=== PATIENT | female | born 1965 | race Two or more races ===

== ENCOUNTER 2018-12-01 20:50 | Inpatient (IN) | payer SELFPAY ==
[~2018-12-01] VITALS: Ht 160 cm; Wt 57.0 kg
[2018-12-01 21:23] LABS: Basophils # (auto) 0.1 uL; Basophils % (auto) 0.4 % (0.0-2.0); Eosinophils # (auto) 0 uL; Monocytes # (auto) 1.2 uL; Monocytes % (auto) 6.4 % (0.0-12.0)
[2018-12-01 21:26] LABS: Eosinophils % (auto) 0.1 % (0.0-7.0); Hematocrit 29.9 % (36.0-46.0); Hemoglobin 8.9 g/dL (12.2-16.2); Lymphocytes # (auto) 0.9 uL; Lymphocytes % (auto) 4.7 % (10.0-50.0); Mean Corpuscular Hemoglobin 18.2 pg (28.0-32.0); Mean Corpuscular Hgb Conc. 29.6 g/dL (32.0-36.0); Mean Corpuscular Volume 61.5 fL (80.0-100.0); Neutrophils # (auto) 16.2 uL; Neutrophils % (auto) 88.4 % (37.0-80.0); Platelet Count (auto) 394 10^3/uL (140-450); Red Blood Cells 4.86 10^6/uL (4.0-5.20); White Blood Cell 18.3 10^3/uL (4.4-10.8)
[2018-12-01 21:28] LABS: Red Cell Distribution Width 21.1 % (11.8-14.3)
[2018-12-01 21:41] LABS: Albumin 3.2 g/dL (3.4-5.0); Calcium 8.9 mg/dL (8.5-10.1); Potassium 3.7 mmol/L (3.5-5.1)
[2018-12-01 21:46] LABS: BUN/Creatinine Ratio 8.8; Bilirubin, Total 0.7 mg/dL (0.2-1.0); Total Protein 8.1 g/dL (6.4-8.2)
[2018-12-01 22:33] LABS: Urine Bacteria FEW /hpf (None Seen); Urine Blood Negative /uL (Negative); Urine Specific Gravity 1.022 (1.001-1.035); Urine WBC 3 /hpf (0 - 5)
[2018-12-02] MEDS ORDERED: ALBUTEROL SULF 2.5 MG/0.5ML(0.5%) NEB SOLN NEB ONE (00:30)
[2018-12-02] MEDS ORDERED: IPRATROPIUM BROM 0.5 MG/2.5ML INH SOL NEB ONE (00:30)
[2018-12-02 01:22] LABS: INR 1.02 (0.9-1.15); Partial Thromboplastin Time 30.2 sec (23.64-32.05)
[2018-12-02] MEDS ORDERED: ONDANSETRON HCL 4 MG/2 ML VIAL IV ONE (04:15)
[2018-12-02] MEDS ORDERED: KETOROLAC TROMETH 30 MG/ML 1ML VIAL IV ONE (04:15)
[2018-12-02] MEDS ORDERED: ACETAMINOPHEN 325 MG TAB PO ONE (05:00)
[2018-12-02] MEDS ORDERED: SODIUM CHLORIDE 0.9% 1,000 ML IV ONE ×2 (05:00)
[2018-12-02] MEDS ORDERED: cefTRIAXone 1GM/50ML D5W 50 ML IV ONE (05:00)
[2018-12-02] MEDS ORDERED: MORPHINE SULFATE 4 MG/ML SYR/VIAL IV ONE (05:00)
[2018-12-02] MEDS ORDERED: DEXTROSE (50%) 50ML SYRG IV PRN (06:30)
[2018-12-02] MEDS: SODIUM CHLORIDE 0.9% 1,000 ML IV SCH ×2 (06:30→19:46)
[2018-12-02] MEDS ORDERED: ONDANSETRON HCL 4 MG/2 ML VIAL IV PRN (06:30)
[2018-12-02] MEDS ORDERED: ALBUTEROL SULF 2.5 MG/0.5ML(0.5%) NEB SOLN NEB PRN (06:30)
[2018-12-02] MEDS ORDERED: TEMAZEPAM 15 MG CAP PO PRN (06:30)
[2018-12-02] MEDS ORDERED: ACETAMINOPHEN 325 MG TAB PO PRN (06:30)
[2018-12-02 08:44] VITALS: BP 92/42
[2018-12-02] MEDS: HYDROcodone-ACET 5/325MG TAB PO PRN ×2 (08:53→19:46)
--- NOTE | 2018-12-02 09:45 | NUR ---
MS admit from ER JERMAIN GARCIA admitted to tele/MS after SBAR received. Patient oriented to ALESSANDRO MARQUEZ, RN primary RN, unit, room, bed, and unit policies regarding patient care and visiting hours. Patient weighed by bed scale and encouraged to call if they need something. All questions and concerns addressed, patient verbalized understanding.
[2018-12-02 09:47] VITALS: BP 84/41
[2018-12-02] MEDS: LEVOFLOXACIN 500MG 100 ML IV SCH (11:57)
[2018-12-02] MEDS: InsuLIN REG 1unit/0.01ml Soln (100units/ml) SC SCH ×2 (11:57→17:51)
[2018-12-02] MEDS: FAMOTIDINE 20 MG TAB PO SCH ×2 (11:57→21:57)
[2018-12-02] MEDS: ACCU-CHEK COMFORT CURVE STRIP VI SCH ×2 (11:57→17:51)
--- NOTE | 2018-12-02 12:00 | NUR ---
Dr. Martinez, Hospitalist, at bedside.
--- NOTE | 2018-12-02 12:00 | NUR ---
New orders received from Dr. Martinez, Hospitalist.
[2018-12-02 13:00] VITALS: BP 91/50
[2018-12-02 16:30] VITALS: BP 117/54
--- NOTE | 2018-12-02 19:55 | NUR ---
OPENING SHIFT NOTE: PATIENT IS RESTING IN BED WITH FAMILY BEDSIDE. SHE IS [place] SPEAKING ONLY. SHE IS AOX4 AND AMBULATORY ON ROOM AIR.. SHE REPORTS NO THER PAIN BESIDES THE FLANK PAIN. UPON ASSESSING HER SHE FELT WARM AND I TOOK HER TEMPERATURE WHICH WAS 101.2. I GAVE HER NORCO WITH TYLENOL TO HELP WITH HER PAIN WELL THE FEVER. I REMOVED THE BLANKETS AND GAVE HER 2 ICE PACKS. I TOLD HER WELL THE FAMILY I WOULD CHECK BACK IN WITH HER TO SEE HOW SHE'S DOING. BED WAS LOCKED IN LOWEST POSITION WITH SIDE RAILS UP X2. CALL LIGHT IS WITHIN REACH. WILL CONTINUE TO MONITOR.
[2018-12-02 20:00] VITALS: BP 115/54
[2018-12-02 22:00] VITALS: BP 133/78
[2018-12-03] MEDS: ACCU-CHEK COMFORT CURVE STRIP VI SCH ×4 (00:08→17:34)
[2018-12-03] MEDS: InsuLIN REG 1unit/0.01ml Soln (100units/ml) SC SCH ×4 (00:09→17:34)
[2018-12-03] MEDS: HYDROcodone-ACET 5/325MG TAB PO PRN (04:20)
[2018-12-03 06:00] VITALS: BP 116/58
[2018-12-03 06:05] LABS: Basophils # (auto) 0.1 uL; Basophils % (auto) 0.4 % (0.0-2.0); Eosinophils # (auto) 0.1 uL; Mean Corpuscular Volume 61.6 fL (80.0-100.0)
[2018-12-03 06:14] LABS: Eosinophils % (auto) 0.5 % (0.0-7.0); Hematocrit 24.7 % (36.0-46.0); Hemoglobin 7.4 g/dL (12.2-16.2); Lymphocytes # (auto) 1.8 uL; Mean Corpuscular Hemoglobin 18.5 pg (28.0-32.0); Monocytes # (auto) 1.1 uL; Monocytes % (auto) 7.3 % (0.0-12.0); Neutrophils # (auto) 12.2 uL; Neutrophils % (auto) 79.8 % (37.0-80.0); Platelet Count (auto) 381 10^3/uL (140-450); Red Blood Cells 4.01 10^6/uL (4.0-5.20); White Blood Cell 15.3 10^3/uL (4.4-10.8)
[2018-12-03 06:19] LABS: Red Cell Distribution Width 21.2 % (11.8-14.3)
[2018-12-03 06:36] LABS: Albumin 2.2 g/dL (3.4-5.0); Calcium 8.2 mg/dL (8.5-10.1); Potassium 3.8 mmol/L (3.5-5.1)
[2018-12-03 06:39] LABS: BUN/Creatinine Ratio 7.8; Bilirubin, Total 0.4 mg/dL (0.2-1.0); Total Protein 6.8 g/dL (6.4-8.2)
--- NOTE | 2018-12-03 07:30 | NUR ---
Opening Shift Note Assumed care of patient, awake, alert, and oriented x4. No S/S of distress/SOB or pain. IV is in left forearm and is asymptomatic, intact, patent, and saline locked. Bed is locked and in lowest position and call light is within reach. Instructed on POC and to call for assist PRN, and patient verbalized understanding. Will continue to monitor for changes Q1hr and PRN.
--- NOTE | 2018-12-03 08:45 | NUR ---
Respiratory note: PT AWAKE, AND ALERT. NO RESPIRATORY DISTRESS NOTED. SPO2 97% ON RA, HR 76, RR 16, BS CLEAR/DIM T/O. PRN MEDNEB TX NOT INDICATED AT THIS TIME. PT INFORMED TO PUSH CALL BUTTON IF INCREASED WOB, SOB, OR WHEEZING OCCUR.
[2018-12-03 09:00] VITALS: BP 102/54
[2018-12-03] MEDS: SODIUM CHLORIDE 0.9% 1,000 ML IV SCH ×2 (09:03→23:37)
[2018-12-03] MEDS: FAMOTIDINE 20 MG TAB PO SCH ×2 (09:25→23:37)
[2018-12-03] MEDS: LEVOFLOXACIN 500MG 100 ML IV SCH (09:25)
--- NOTE | 2018-12-03 11:01 | NUR ---
Dr. Martinez, Hospitalist, at bedside.
[2018-12-03 13:00] VITALS: BP 98/61
--- NOTE | 2018-12-03 16:30 | NUR ---
IV removal IV DC'd with clean sterile technique, catheter fully intact. Pressure dressing applied to site. Patient tolerated well.
--- NOTE | 2018-12-03 16:45 | NUR ---
IV insertion IV access obtained, via clean sterile technique by inserting 22 gauge catheter at right forearm after 2 attempts. IV secured properly. No trauma to site. Patient tolerated well.
[2018-12-03 16:46] VITALS: BP 114/60
--- NOTE | 2018-12-03 19:17 | NUR ---
Respiratory note: ASSESSED PT FOR PRN MED NEB TX. PT IS CURRENTLY ON ROOM AIR: HR 83, RR 16, SPO2 97%. PT SHOWS NO S/S OF SOB OR RESPIRATORY DISTRESS. MED NEB TX NOT INDICATED AT THIS TIME. WILL CONTINUE TO MONITOR.
--- NOTE | 2018-12-03 19:30 | NUR ---
Opening Shift Note Assumed care of patient. Patient is awake and alert. No S/S of distress/SOB or pain. Instructed on POC and to call for assist PRN, will continue to monitor for changes. Bed locked in lowest position and bed rails up x2. Call light within reach.
[2018-12-03 22:00] VITALS: BP 120/61
[2018-12-04] MEDS: InsuLIN REG 1unit/0.01ml Soln (100units/ml) SC SCH ×3 (00:58→12:00)
[2018-12-04] MEDS: ACCU-CHEK COMFORT CURVE STRIP VI SCH ×3 (00:58→12:00)
[2018-12-04] MEDS: HYDROcodone-ACET 5/325MG TAB PO PRN ×2 (01:51→10:02)
[2018-12-04 05:00] VITALS: BP 106/56
--- NOTE | 2018-12-04 06:33 | NUR ---
PRN MN TX NOT INDICATED AT THIS TIME. PT IS AWAKE, ALERT AND ORIENTED, BS ARE CLEAR TO AUSCULTATION, RESPIRATION IS EVEN AND NON LABORED, SKIN IS DRY AND WARM TO THE TOUCH. PT ON RA, 98% O2 SATS, HR 77 BPM, RR17 BPM. PT DENIES SOB OR ANY OTHER RESPIRATORY DISTRESS. PT INSTRUCTED TO CALL IF MN TX IS INDICATED. PT VERBALIZED UNDERSTANDING. WILL CONTINUE TO MONITOR PT.
[2018-12-04 06:57] LABS: Monocytes # (auto) 0.7 uL
[2018-12-04 07:00] LABS: Basophils # (auto) 0 uL; Basophils % (auto) 0.4 % (0.0-2.0); Eosinophils # (auto) 0.1 uL; Eosinophils % (auto) 1.3 % (0.0-7.0); Hematocrit 25.4 % (36.0-46.0); Hemoglobin 7.8 g/dL (12.2-16.2); Lymphocytes # (auto) 2.4 uL; Lymphocytes % (auto) 22.2 % (10.0-50.0); Mean Corpuscular Hemoglobin 19.1 pg (28.0-32.0); Mean Corpuscular Hgb Conc. 30.5 g/dL (32.0-36.0); Mean Corpuscular Volume 62.7 fL (80.0-100.0); Monocytes % (auto) 6.1 % (0.0-12.0); Neutrophils # (auto) 7.6 uL; Nucleated Red Blood Cells % 0.1 %; Red Blood Cells 4.06 10^6/uL (4.0-5.20); White Blood Cell 10.9 10^3/uL (4.4-10.8)
[2018-12-04 07:06] LABS: Red Cell Distribution Width 21.6 % (11.8-14.3)
--- NOTE | 2018-12-04 07:30 | NUR ---
Opening Shift Note Assumed care of patient, awake and alert. No S/S of distress/SOB or pain. Instructed on POC and to call for assist PRN, will continue to monitor. Bed locked in the lowest position. Bed rails up x2. Call light in reach.
[2018-12-04 09:00] VITALS: BP 111/52
[2018-12-04 09:28] LABS: Platelet Count (auto) 473 10^3/uL (140-450)
[2018-12-04] MEDS: LEVOFLOXACIN 500MG 100 ML IV SCH (10:01)
[2018-12-04] MEDS: FAMOTIDINE 20 MG TAB PO SCH (10:02)
--- NOTE | 2018-12-04 11:30 | NUR ---
PATIENT IS DISCHARGED WAITING IN ROOM FOR RIDE.
[2018-12-04] MEDS: SODIUM CHLORIDE 0.9% 1,000 ML IV SCH (11:43)
[2018-12-04 13:00] VITALS: BP 132/90
--- NOTE | 2018-12-04 13:00 | NUR ---
DISCHARGE Discharge instructions given as ordered. Encourage to follow up with PMD as instructed. All questions and concerns addressed. Patient verbalized understanding. Medication reconciliation form completed and copy given to patient. IV removed with catheter intact, pressure dressing applied. Patient ambulated to vehicle with all personal belongings, accompanied by staff and family member. No distress noted at time of departure.
== END 2018-12-04 14:00 | disposition home or self-care (01) | DRG 871 ==
LOC: ER 20:57 → OVERFLOW 20:58 → WEST WING 12-02 09:36
PROVIDERS: ADMIT Nurse Practitioner; ATTEND Family Medicine
DX: A41.9 Sepsis, unspecified organism (principal); E11.10 Type 2 diabetes mellitus with ketoacidosis without coma; N10 Acute pyelonephritis; J45.909 Unspecified asthma, uncomplicated; E86.0 Dehydration
CPT/HCPCS: 36415; 74176; 80053; 81001; 82010; 82962; 83036; 83605; 84484; 85025; 85610; 85730; 87040; 87086; 87088; 87186; 94640; 96365; 96375; G0378; J0696; J1815; J1885; J1956; J2405

== ENCOUNTER 2019-05-10 18:50 | Emergency (ER) | payer MEDICAID ==
[~2019-05-10] VITALS: Ht 154.9 cm; Wt 68.0 kg
[2019-05-10] MEDS ORDERED: SODIUM CHLORIDE 0.9% 1,000 ML IV ONE (19:15)
[2019-05-10 20:10] LABS: Basophils # (auto) 0.1 uL; Eosinophils # (auto) 0.2 uL; Lymphocytes % (auto) 22.6 % (10.0-50.0); Mean Corpuscular Hemoglobin 20.2 pg (28.0-32.0); Mean Corpuscular Hgb Conc. 30.9 g/dL (32.0-36.0); Mean Corpuscular Volume 65.4 fL (80.0-100.0); Monocytes # (auto) 0.6 uL
[2019-05-10 20:13] LABS: Basophils % (auto) 0.8 % (0.0-2.0); Eosinophils % (auto) 2.2 % (0.0-7.0); Hematocrit 31.8 % (36.0-46.0); Hemoglobin 9.8 g/dL (12.2-16.2); Lymphocytes # (auto) 1.9 uL; Monocytes % (auto) 7.8 % (0.0-12.0); Neutrophils # (auto) 5.5 uL; Neutrophils % (auto) 66.6 % (37.0-80.0); Nucleated Red Blood Cells % 0.1 %; Platelet Count (auto) 274 10^3/uL (140-450); Red Blood Cells 4.86 10^6/uL (4.0-5.20); Red Cell Distribution Width 18.8 % (11.8-14.3); White Blood Cell 8.2 10^3/uL (4.4-10.8)
[2019-05-10] MEDS ORDERED: BACITRACIN TOP OINT 1 UD PKG TOP ONE (20:26)
[2019-05-10 20:32] LABS: Albumin 3.5 g/dL (3.4-5.0); BUN/Creatinine Ratio 15.2; Calcium 8.9 mg/dL (8.5-10.1); Potassium 3.9 mmol/L (3.5-5.1)
[2019-05-10 20:35] LABS: Bilirubin, Total 0.3 mg/dL (0.2-1.0); Total Protein 7.7 g/dL (6.4-8.2)
[2019-05-10 21:01] VITALS: BP 135/47
== END 2019-05-10 22:06 | disposition home or self-care (01) ==
LOC: ER 18:50 → EDBD 18:50 → ER 22:06
DX: S82.832A Other fracture of upper and lower end of left fibula, initial encounter for closed fracture (principal); S16.1XXA Strain of muscle, fascia and tendon at neck level, initial encounter; M25.512 Pain in left shoulder; V43.52XA Car driver injured in collision with other type car in traffic accident, initial encounter; Y93.89 Activity, other specified; Y92.488 Other paved roadways as the place of occurrence of the external cause; Y99.8 Other external cause status
CPT/HCPCS: 36415; 72125; 73562; 73590; 73610; 80053; 82010; 85025; 99285; J7030

== ENCOUNTER 2020-04-27 12:21 | Inpatient (IN) | payer MEDICAID, OTHER ==
[~2020-04-27] VITALS: Ht 157.5 cm; Wt 56.0 kg
[2020-04-27] MEDS: BUDESONIDE (INHALATION) 180 MCG IH IN SCH (06:47)
[2020-04-27] MEDS ORDERED: DexAMETHasone SOD PHOS 10MG/1ML VIAL INJ IV ONE (12:45)
[2020-04-27] MEDS ORDERED: AZITHROMYCIN 500MG/ 250ML 250 ML IV ONE (12:45)
[2020-04-27] MEDS ORDERED: cefTRIAXone 1GM/50ML D5W 50 ML IV ONE (12:45)
[2020-04-27 13:06] LABS: Basophils # (auto) 0 10 ^3/uL (0-0.2); Basophils % (auto) 0.1 % (0.0-2.0); Eosinophils # (auto) 0 10 ^3/uL (0-0.8); Eosinophils % (auto) 0.1 % (0.0-7.0); Hematocrit 30.5 % (36.0-46.0); Hemoglobin 9.6 g/dL (12.2-16.2); Lymphocytes # (auto) 0.7 10 ^3/uL (0.4-5.4); Lymphocytes % (auto) 8.9 % (10.0-50.0); Mean Corpuscular Hemoglobin 21.2 pg (28.0-32.0); Mean Corpuscular Hgb Conc. 31.5 g/dL (32.0-36.0); Mean Corpuscular Volume 67.1 fL (80.0-100.0); Monocytes # (auto) 0.4 10 ^3/uL (0-1.3); Neutrophils # (auto) 6.7 10 ^3/uL (1.6-8.6); Neutrophils % (auto) 85.9 % (37.0-80.0); Platelet Count (auto) 412 10^3/uL (140-450); Red Blood Cells 4.54 10^6/uL (4.0-5.20); Red Cell Distribution Width 19.7 % (11.8-14.3); White Blood Cell 7.8 10^3/uL (4.4-10.8)
[2020-04-27] MEDS ORDERED: ASCORBIC ACID 500 MG TAB PO ONE (13:15)
[2020-04-27] MEDS ORDERED: ZINC SULFATE 220mg CAP or TAB PO ONE (13:15)
[2020-04-27 13:25] LABS: Albumin 2.8 g/dL (3.4-5.0); Potassium 4.6 mmol/L (3.5-5.1)
[2020-04-27 13:33] LABS: BUN/Creatinine Ratio 8.7; Bilirubin, Total 0.4 mg/dL (0.2-1.0); Total Protein 7.5 g/dL (6.4-8.2)
[2020-04-27] MEDS ORDERED: InsuLIN REG 1unit/0.01ml Soln (100units/ml) IV ONE (14:15)
[2020-04-27 15:54] LABS: Urine Bacteria NONE SEEN /hpf (None Seen); Urine Blood Negative /uL (Negative); Urine Specific Gravity 1.019 (1.001-1.035); Urine WBC <1 /hpf (0 - 5)
[2020-04-27] MEDS ORDERED: DEXTROSE (50%) 50ML SYRG IV PRN (16:45)
[2020-04-27] MEDS ORDERED: ACETAMINOPHEN 500 MG TAB PO PRN ×2 (16:45)
[2020-04-27] MEDS ORDERED: hydrALAZINE HCL 20 MG/ML VL IV PRN (16:45)
[2020-04-27] MEDS ORDERED: LORazepam 0.5 MG TAB PO PRN (16:45)
[2020-04-27] MEDS ORDERED: NITROGLYCERIN 0.4 MG SL TAB SL PRN (16:45)
[2020-04-27] MEDS ORDERED: MORPHINE SULF INJ 2 MG/ML SYRINGE 1ML IV PRN ×2 (16:45)
[2020-04-27] MEDS ORDERED: ONDANSETRON HCL 4 MG/2 ML VIAL IV PRN (16:45)
[2020-04-27] MEDS ORDERED: DOCUSATE CALCIUM 240 MG CAP PO PRN (16:45)
[2020-04-27 17:44] VITALS: BP 127/58
[2020-04-27] MEDS ORDERED: METF-929 PO (18:43)
[2020-04-27] MEDS ORDERED: INSLANTI SC (18:52)
[2020-04-27] MEDS ORDERED: ALBUAER3 IN (18:57)
[2020-04-27] MEDS: ACCU-CHEK COMFORT CURVE STRIP VI SCH (19:04)
[2020-04-27] MEDS: InsuLIN REG 1unit/0.01ml Soln (100units/ml) SC SCH (19:04)
[2020-04-27 19:41] LABS: CRP High Sensitivity 10.3 mg/dL (< 0.3)
[2020-04-27] MEDS: SODIUM CHLORIDE 0.9% 1,000 ML IV SCH (20:00)
[2020-04-27] MEDS: PIPERACILLIN-TAZO 4.5GM 100 ML IV SCH (21:49)
[2020-04-27] MEDS: ENOXAPARIN SOD 40 MG/0.4 ML SYRINGE SC SCH (21:49)
[2020-04-28] VITALS: BP 135/66
[2020-04-28] MEDS: SODIUM CHLORIDE 0.9% 1,000 ML IV SCH (00:53)
[2020-04-28] MEDS: InsuLIN REG 1unit/0.01ml Soln (100units/ml) SC SCH ×4 (00:54→17:17)
[2020-04-28] MEDS: ACCU-CHEK COMFORT CURVE STRIP VI SCH ×4 (05:46→17:18)
[2020-04-28 06:38] LABS: Basophils # (auto) 0 10 ^3/uL (0-0.2); Eosinophils # (auto) 0 10 ^3/uL (0-0.8); Monocytes # (auto) 0.3 10 ^3/uL (0-1.3); Neutrophils # (auto) 3.7 10 ^3/uL (1.6-8.6)
[2020-04-28] MEDS: PIPERACILLIN-TAZO 4.5GM 100 ML IV SCH ×3 (06:39→20:58)
[2020-04-28 06:40] LABS: Basophils % (auto) 0.3 % (0.0-2.0); Hemoglobin 10.2 g/dL (12.2-16.2); Lymphocytes # (auto) 0.5 10 ^3/uL (0.4-5.4); Lymphocytes % (auto) 11.9 % (10.0-50.0); Mean Corpuscular Hemoglobin 24.9 pg (28.0-32.0); Mean Corpuscular Volume 73.1 fL (80.0-100.0); Monocytes % (auto) 6.5 % (0.0-12.0); Neutrophils % (auto) 81.3 % (37.0-80.0); Nucleated Red Blood Cells % 0.3 %; Platelet Count (auto) 488 10^3/uL (140-450); White Blood Cell 4.5 10^3/uL (4.4-10.8)
[2020-04-28 06:51] LABS: Potassium 3.6 mmol/L (3.5-5.1)
[2020-04-28 07:02] LABS: Albumin 2.6 g/dL (3.4-5.0); BUN/Creatinine Ratio 27.7; Bilirubin, Total 0.3 mg/dL (0.2-1.0); Calcium 8.5 mg/dL (8.5-10.1); Total Protein 7.7 g/dL (6.4-8.2)
[2020-04-28 08:00] VITALS: BP 124/63
[2020-04-28] MEDS: AZITHROMYCIN 500MG/ 250ML 250 ML IV SCH (09:21)
[2020-04-28] MEDS: DexAMETHasone SOD PHOS 10MG/1ML VIAL INJ IV SCH (09:21)
[2020-04-28] MEDS: CHOLECALCIFEROL (VITD3) 2,000 UNIT CAP/TAB PO SCH (09:22)
[2020-04-28] MEDS: ASCORBIC ACID 1,000 MG TAB PO SCH (09:22)
[2020-04-28] MEDS: ZINC SULFATE 220mg CAP or TAB PO SCH (09:22)
[2020-04-28] MEDS: PANTOPRAZOLE 40 MG TAB PO SCH (09:22)
[2020-04-28] MEDS: ENOXAPARIN SOD 40 MG/0.4 ML SYRINGE SC SCH ×2 (09:23→20:58)
[2020-04-28] MEDS ORDERED: diphenhdrAMINE HCL 50 MG/1 ML VL IV PRN (09:45)
[2020-04-28] MEDS ORDERED: REMDESIVIR PER PHARMACY 0 ML IV SCH (09:45)
[2020-04-28] MEDS: FUROSEMIDE 40 MG/4 ML VIAL IV SCH (10:12)
[2020-04-28] MEDS: INSULIN LANTUS (GLARGINE) 1 /0.01ml (100units/ml) SC SCH ×2 (10:13→21:27)
[2020-04-28] MEDS ORDERED: REMDESIVIR 200 MG in NS 210ml LOADING DOSE ADULT IV ONE (15:00)
[2020-04-28 16:00] VITALS: BP 135/66
[2020-04-28] MEDS: BUDESONIDE (INHALATION) 180 MCG IH IN SCH (19:08)
[2020-04-28] MEDS: ALBUTEROL SULF HFA 90MCG INH 200DOSE IN PRN (21:27)
[2020-04-28 23:30] VITALS: BP 133/56
[2020-04-29] VITALS (7 sets, daily range): BP systolic 103–144; BP diastolic 58–72
[2020-04-29] MEDS: InsuLIN REG 1unit/0.01ml Soln (100units/ml) SC SCH ×4 (00:46→17:54)
[2020-04-29] MEDS: PIPERACILLIN-TAZO 4.5GM 100 ML IV SCH (05:48)
[2020-04-29] MEDS: ACCU-CHEK COMFORT CURVE STRIP VI SCH ×4 (05:48→17:52)
[2020-04-29] MEDS: BUDESONIDE (INHALATION) 180 MCG IH IN SCH ×2 (06:45→21:21)
[2020-04-29] MEDS: DexAMETHasone SOD PHOS 10MG/1ML VIAL INJ IV SCH (09:23)
[2020-04-29] MEDS: FUROSEMIDE 40 MG/4 ML VIAL IV SCH (09:25)
[2020-04-29] MEDS: AZITHROMYCIN 500MG/ 250ML 250 ML IV SCH (09:25)
[2020-04-29] MEDS: ZINC SULFATE 220mg CAP or TAB PO SCH (09:31)
[2020-04-29] MEDS: ASCORBIC ACID 1,000 MG TAB PO SCH (09:31)
[2020-04-29] MEDS: PANTOPRAZOLE 40 MG TAB PO SCH (09:31)
[2020-04-29] MEDS: CHOLECALCIFEROL (VITD3) 2,000 UNIT CAP/TAB PO SCH (09:31)
[2020-04-29] MEDS: INSULIN LANTUS (GLARGINE) 1 /0.01ml (100units/ml) SC SCH ×2 (09:32→22:12)
[2020-04-29] MEDS: ENOXAPARIN SOD 40 MG/0.4 ML SYRINGE SC SCH ×2 (09:32→22:13)
[2020-04-29] MEDS ORDERED: POTASSIUM CHL 20 Meq TABLET PO ONE (10:30)
[2020-04-29] MEDS ORDERED: guaiFENesin-DM 100/10mg/5ml SYR PO PRN (15:45)
[2020-04-29] MEDS: REMDESIVIR 100mg 100 MG in SODIUM CHL 0.9% 230 ML IV SCH (15:45)
[2020-04-30] VITALS: BP 155/67
[2020-04-30] MEDS: ACCU-CHEK COMFORT CURVE STRIP VI SCH ×3 (00:35→11:58)
[2020-04-30] MEDS: InsuLIN REG 1unit/0.01ml Soln (100units/ml) SC SCH ×3 (00:35→11:58)
[2020-04-30] MEDS: BUDESONIDE (INHALATION) 180 MCG IH IN SCH (06:45)
[2020-04-30] MEDS: ALBUTEROL SULF HFA 90MCG INH 200DOSE IN PRN ×3 (06:45→10:13)
[2020-04-30 07:15] LABS: Basophils # (auto) 0 10 ^3/uL (0-0.2); Eosinophils # (auto) 0 10 ^3/uL (0-0.8); Eosinophils % (auto) 0.1 % (0.0-7.0); Lymphocytes # (auto) 2.3 10 ^3/uL (0.4-5.4); Nucleated Red Blood Cells % 0.1 %
[2020-04-30 07:18] LABS: Basophils % (auto) 0.3 % (0.0-2.0); Hematocrit 32.6 % (36.0-46.0); Hemoglobin 10.4 g/dL (12.2-16.2); Mean Corpuscular Hemoglobin 22.8 pg (28.0-32.0); Mean Corpuscular Volume 71.1 fL (80.0-100.0); Monocytes # (auto) 0.7 10 ^3/uL (0-1.3); Monocytes % (auto) 8.4 % (0.0-12.0); Neutrophils # (auto) 4.8 10 ^3/uL (1.6-8.6); Neutrophils % (auto) 61.2 % (37.0-80.0); Red Blood Cells 4.59 10^6/uL (4.0-5.20); Red Cell Distribution Width 19.1 % (11.8-14.3); White Blood Cell 7.8 10^3/uL (4.4-10.8)
[2020-04-30 07:45] LABS: Albumin 2.8 g/dL (3.4-5.0); Calcium 8.6 mg/dL (8.5-10.1); Potassium 3.2 mmol/L (3.5-5.1)
[2020-04-30 07:49] LABS: BUN/Creatinine Ratio 39.6; Bilirubin, Total 0.4 mg/dL (0.2-1.0); Total Protein 7.7 g/dL (6.4-8.2)
[2020-04-30 08:00] VITALS: BP 101/51
[2020-04-30 08:27] LABS: Platelet Count (auto) 558 10^3/uL (140-450)
[2020-04-30] MEDS ORDERED: cefTRIAXone 1GM/50ML D5W 50 ML IV SCH (09:00)
[2020-04-30] MEDS: DexAMETHasone SOD PHOS 10MG/1ML VIAL INJ IV SCH (09:48)
[2020-04-30] MEDS: ZINC SULFATE 220mg CAP or TAB PO SCH (09:49)
[2020-04-30] MEDS: AZITHROMYCIN 500MG/ 250ML 250 ML IV SCH (09:49)
[2020-04-30] MEDS: FUROSEMIDE 40 MG/4 ML VIAL IV SCH (09:49)
[2020-04-30] MEDS: ENOXAPARIN SOD 40 MG/0.4 ML SYRINGE SC SCH (09:50)
[2020-04-30] MEDS: CHOLECALCIFEROL (VITD3) 2,000 UNIT CAP/TAB PO SCH (09:50)
[2020-04-30] MEDS: PANTOPRAZOLE 40 MG TAB PO SCH (09:50)
[2020-04-30] MEDS: ASCORBIC ACID 1,000 MG TAB PO SCH (09:50)
[2020-04-30] MEDS ORDERED: POTASSIUM CHL 20 Meq TABLET PO SCH (10:00)
[2020-04-30] MEDS: INSULIN LANTUS (GLARGINE) 1 /0.01ml (100units/ml) SC SCH (10:25)
[2020-04-30] MEDS ORDERED: METH4PAK PO (13:50)
[2020-04-30] MEDS ORDERED: PANT40TA2 PO (13:50)
[2020-04-30] MEDS ORDERED: ALBUAER3 IN (13:50)
[2020-04-30] MEDS ORDERED: ASCO500T11 PO (13:50)
[2020-04-30] MEDS ORDERED: AZIT250T8 PO (13:50)
[2020-04-30] MEDS ORDERED: ZINC220T6 PO (13:50)
[2020-04-30] MEDS ORDERED: ASPI-231 PO (13:52)
[2020-04-30 14:47] VITALS: BP 106/55
[2020-04-30] MEDS: REMDESIVIR 100mg 100 MG in SODIUM CHL 0.9% 230 ML IV SCH (15:19)
[2020-04-30 15:45] VITALS: BP 115/51
== END 2020-04-30 17:40 | disposition home or self-care (01) | DRG 137 ==
LOC: ER 12:21 → TELE 12:22 → TELE-EAST 17:44 → TELE-WESTW 23:46
PROVIDERS: ADMIT Family Medicine; ATTEND Internal Medicine
PROC: XW033E5 Introduction of Remdesivir Anti-infective into Peripheral Vein, Percutaneous Approach, New Technology Group 5 (ICD-10-PCS; 2020-04-28)
PROC: XW13325 Transfusion of Convalescent Plasma (Nonautologous) into Peripheral Vein, Percutaneous Approach, New Technology Group 5 (ICD-10-PCS; principal; 2020-04-29)
DX: U07.1 COVID-19 (principal); J12.82 Pneumonia due to coronavirus disease 2019; E44.0 Moderate protein-calorie malnutrition; E11.65 Type 2 diabetes mellitus with hyperglycemia; J96.01 Acute respiratory failure with hypoxia; E87.1 Hypo-osmolality and hyponatremia; E83.51 Hypocalcemia; E86.0 Dehydration; D64.9 Anemia, unspecified; I10 Essential (primary) hypertension
CPT/HCPCS: 36415; 71045; 80053; 81001; 82306; 82728; 82962; 83036; 83605; 83615; 83735; 83970; 84443; 84484; 85025; 85379; 86141; 86850; 86900; 86901; 87426; 93005; 94640; 96365; 96366; 96367; 96375; G0378; J0696; J1100; J1815; J2543

== ENCOUNTER 2023-11-27 10:08 | Emergency (ER) | payer MEDICAID ==
[~2023-11-27 10:08] MED LIST: ALBUAER3 IN; ASCO500T11 PO; ASPI1TAB20 PO; AZIT-185 PO; INSLANTI SC; METF-929 PO; METH4PAK PO; PANT40TA2 PO; ZINC220T6 PO
[2023-11-27 11:58] LABS: Basophils # (auto) 0.1 10 ^3/uL (0-0.2); Eosinophils # (auto) 0 10 ^3/uL (0-0.8); Eosinophils % (auto) 0.3 % (0.0-7.0); Hemoglobin 16.3 g/dL (12.2-16.2); Lymphocytes # (auto) 0.6 10 ^3/uL (0.4-5.4); Lymphocytes % (auto) 5.3 % (10.0-50.0); Mean Corpuscular Hemoglobin 29.3 pg (28.0-32.0); Mean Corpuscular Hgb Conc. 33.2 g/dL (32.0-36.0); Mean Corpuscular Volume 88.2 fL (80.0-100.0); Monocytes # (auto) 0.7 10 ^3/uL (0-1.3); Monocytes % (auto) 6.6 % (0.0-12.0); Neutrophils # (auto) 9.6 10 ^3/uL (1.6-8.6); Neutrophils % (auto) 86.8 % (37.0-80.0); Platelet Count (auto) 263 10^3/uL (140-450); Red Blood Cells 5.56 10^6/uL (4.0-5.20); Red Cell Distribution Width 14.1 % (11.8-14.3)
[2023-11-27 12:04] LABS: Alanine Aminotransferase 38 U/L (7-40); Albumin 4.8 g/dL (3.2-4.8); Alkaline Phosphatase 131 U/L (46-116); Anion Gap 11 (5-15); Aspartate Aminotransferase 27 U/L (13-40); BUN/Creatinine Ratio 16.9 (10.0-20.0); Blood Urea Nitrogen 20 mg/dL (9-23); Calcium 10.5 mg/dL (8.7-10.4); Carbon Dioxide 20 mmol/L (20-30); Chloride 104 mmol/L (98-107); Magnesium 1.8 mg/dL (1.6-2.6); Potassium 4.1 mmol/L (3.5-5.1); Sodium 135 mmol/L (136-145)
[2023-11-27 12:05] LABS: Bilirubin, Total 0.7 mg/dL (0.2-1.0); Total Protein 7.9 g/dL (5.7-8.2)
[2023-11-27 12:07] LABS: Lactic Acid w/Reflex 2.4 mmol/L (0.4-2.0)
[2023-11-27 12:09] LABS: Glucose 485 mg/dL (74-106)
[2023-11-27 12:19] LABS: Lipase 40 U/L (12-53)
[2023-11-27 13:04] LABS: Urine Bacteria FEW /hpf (None Seen); Urine Blood Negative /uL (Negative); Urine Clarity Turbid (Clear); Urine Color Yellow (Yellow); Urine Hyaline Cast MANY /lpf (0 - 2); Urine Mucus FEW (None Seen); Urine Protein, UAD 2+ (Negative); Urine Specific Gravity 1.024 (1.001-1.035); Urine Urobilinogen 2 mg/dL (Negative); Urine WBC 7 /hpf (0 - 5); Urine pH 5.5 (5.0-9.0)
[2023-11-27] MEDS: SODIUM CHLORIDE 0.9% 1,000 ML IV ONE ×2 (14:11)
[2023-11-27] MEDS ORDERED: LACTATED RINGER'S 1,000 ML IV ONE (14:15)
[2023-11-27] MEDS: ONDANSETRON HCL 4 MG/2 ML VIAL IV ONE (14:20)
[2023-11-27] MEDS: InsuLIN REG 1unit/0.01ml Soln (100units/ml) IV ONE (14:26)
[2023-11-27 15:10] VITALS: PULSE 81; RESP 18; O2SAT 92
[2023-11-27 16:04] LABS: Base Excess -7.5 mmol/L (-2.0-3.0)
[2023-11-27] MEDS: cefTRIAXone 1GM/50ML D5W 50 ML IV ONE (16:21)
[2023-11-27 17:47] LABS: Alanine Aminotransferase 28 U/L (7-40); Albumin 3.7 g/dL (3.2-4.8); Alkaline Phosphatase 87 U/L (46-116); Anion Gap 6 (5-15); Aspartate Aminotransferase 18 U/L (13-40); Blood Urea Nitrogen 16 mg/dL (9-23); Calcium 8.8 mg/dL (8.7-10.4); Carbon Dioxide 22 mmol/L (20-30); Chloride 111 mmol/L (98-107); Glucose 304 mg/dL (74-106); Potassium 4.2 mmol/L (3.5-5.1); Sodium 139 mmol/L (136-145)
[2023-11-27 17:48] LABS: Bilirubin, Total 0.5 mg/dL (0.2-1.0); Total Protein 6.3 g/dL (5.7-8.2)
[2023-11-27 19:10] VITALS: PULSE 71; RESP 11; O2SAT 97
[2023-11-27 19:43] LABS: Alanine Aminotransferase 27 U/L (7-40); Albumin 3.8 g/dL (3.2-4.8); Alkaline Phosphatase 86 U/L (46-116); Anion Gap 8 (5-15); Aspartate Aminotransferase 19 U/L (13-40); BUN/Creatinine Ratio 17.6 (10.0-20.0); Bilirubin, Total 0.6 mg/dL (0.2-1.0); Blood Urea Nitrogen 13 mg/dL (9-23); Calcium 8.9 mg/dL (8.7-10.4); Carbon Dioxide 20 mmol/L (20-30); Chloride 111 mmol/L (98-107); Glucose 259 mg/dL (74-106); Potassium 3.8 mmol/L (3.5-5.1); Sodium 139 mmol/L (136-145); Total Protein 6.5 g/dL (5.7-8.2)
[2023-11-27 21:44] VITALS: BP 107/66; PULSE 75; RESP 19; TEMP 98.2; O2SAT 95
== END 2023-11-27 21:59 | disposition short-term general hospital (02) ==
LOC: ER 10:08
DX: E11.65 Type 2 diabetes mellitus with hyperglycemia (principal); R09.02 Hypoxemia; R11.2 Nausea with vomiting, unspecified; R19.7 Diarrhea, unspecified; E86.0 Dehydration; I95.9 Hypotension, unspecified; J45.909 Unspecified asthma, uncomplicated
CPT/HCPCS: 36415; 36600; 80053; 81001; 82010; 82805; 82962; 83605; 83690; 83735; 85025; 96361; 96365; 96375; 99285; J0696; J1815; J2405; J7030

== ENCOUNTER 2024-10-10 11:42 | Emergency (ER) | payer MEDICAID ==
[~2024-10-10] VITALS: Ht 162.6 cm; Wt 56.9 kg
--- NOTE | 2024-10-10 12:11 | ED.PDOC ---
HPI (NEURO) HPI Comments 59 y/o F, with PMHx of HTN and DM presents to the ED for CC of left sided facial numbness. Patient states, she has been experiencing left sided facial numbness with an associated left sided frontal headache onset, Thursday (10/08/24). Patient reports, when drinking liquids she is unable to swallow d/t left sided deficit, causing liquids to run out of her mouth. Patient denies dizziness, blurred vision, loss of strength, abnormal gait, or weakness. No other associated symptoms, modifiers, recent injuries or sick contacts present at this time. Time Seen by MD: 12:05 Primary Care Provider: KIRK Finley Notes: Nurses Notes, Medications, Allergies Information Source: Patient Mode of Arrival: Ambulatory Severity: Moderate Headache Severity: Mild Timing: Days Duration: Since onset Prehospital treatment: None Headache Location: Frontal Numbness Location: (L) Sided Onset: At rest Circumstances: Spontaneous Symptoms: Numbness Before: Normal During: Awake After: Normal Mentation History of: None Modifying factors: Nothing Associated Signs and Symptoms: Headache, Numbness Past Medical History PAST MEDICAL HISTORY: Asthma, DM, HTN Surgical History: Denies all surgeries ADMINISTRATIVE RECEPTIONIST History: No Pertinent ADMINISTRATIVE RECEPTIONIST History Family History Family History: Reviewed,noncontributory to illness Social History Smoker: Non-Smoker Alcohol: Denies ETOH Use Drugs: Denies Drug Use Lives In: Home Constitutional: denies: chills, diaphoresis, fatigue, fever, malaise, sweats, weakness, others EENTM: denies: blurred vision, double vision, ear bleeding, ear discharge, ear drainage, ear pain, ear ringing, eye pain, eye redness, hearing loss, mouth pain, mouth swelling, nasal discharge, nose bleeding, nose congestion, nose pain, photophobia, tearing, throat pain, throat swelling, voice changes, others Respiratory: denies: cough, hemoptysis, orthopnea, SOB at rest, shortness of breath, SOB with excertion, stridor, wheezing, others Cardiovascular: denies: chest pain, dizzy spells, diaphoresis, Dyspnea on exertion, edema, irregular heart beat, left arm pain, lightheadedness, palpitations, PND, syncope, others Gastrointestinal: denies: abdomen distended, abdominal pain, blood streaked bowels, constipated, diarrhea, dysphagia, difficulty swallowing, hematemesis, melena, nausea, poor appetite, poor fluid intake, rectal bleeding, rectal pain, vomiting, others Genitourinary: denies: abnormal vagina bleeding, burning, dyspareunia, dysuria, flank pain, frequency, hematuria, incontinence, pain, , vagina discharge, urgency, others Neurological: reports: headache, left sided numbness (facial); denies: dizziness, fainting, left sided weakness, numbness, paresthesia, pre-existing deficit, right sided numbness, right sided weakness, seizure, speech problems, tingling, tremors, weakness, others Musculoskeletal: denies: back pain, gout, joint pain, joint swelling, muscle pain, muscle stiffness, neck pain, others Integumetry: denies: bruises, change in color, change in hair/nails, dryness, laceration, lesions, lumps, rash, wounds, others Allergic/Immunocompromised: denies: Difficulty Healing, Frequent Infections, Hives, Itching, others Hematologic/Lymphatic: denies: anemia, blood clots, easy bleeding, easy bruising, swollen glands, others Endocrine: denies: excessive hunger, excessive sweating, excessive thirst, excessive urination, flushing, intolerance to cold, intolerance to heat, unexplained weight gain, unexplained weight loss, others Psychiatric: denies: anxiety, bipolar disorder, depression, hopeless, panic disorder, schizophrenia, sleepless, suicidal, others All Other Systems: Reviewed and Negative Physical Exam General Appearance: Moderate Distress HEENT: Normal ENT Inspection, Pharynx Normal, TMs Normal Neck: Full Range of Motion, Non-Tender, Normal, Normal Inspection Respiratory: Chest Non-Tender, Lungs Clear, No Accessory Muscle Use, No Respiratory Distress, Normal Breath Sounds Cardiovascular: No Edema, No JVD, No Murmur, No Gallop, Normal Peripheral Pulses, Regular Rate/Rhythm Breast Exam: Deferred Gastrointestinal: No Organomegaly, Non Tender, No Pulsatile Mass, Normal Bowel Sounds, Soft Genitalia: Deferred Pelvic: Deferred Rectal: Deferred Extremities: No calf tenderness, Normal capillary refill, Normal inspection, Normal range of motion, Non-tender, No pedal edema Musculoskeletal : Apperance: Normal Neurologic: Facial Droop Cerebellar Function: Normal Reflexes: Normal Skin: Normal Color Lymphatic: No Adenopathy Was a procedure done? Was a procedure done?: No Differential Diagnosis (SZ) Seizure: Psychogenic Seizure, Closed Head Injury, CVA/TIA, N/A CVA: Montiel's Palsy, Electrolyte Imbalance, Hypoglycemia, TIA General Weakness: N/A X-Ray, Labs, Meds, VS Vital Signs Date Time Temp Pulse Resp B/P (MAP) Pulse Ox O2 Delivery O2 Flow Rate FiO2 10/10/24 16:53 98.2 68 16 138/50 (79) 98 98.2 10/10/24 15:08 59 16 97 Room Air* 0 21 10/10/24 14:30 98.1 59 16 165/64 (97) 97 98.1 10/10/24 12:12 56 10/10/24 11:42 98.6 59 17 153/62 (92) 96 98.6 Lab Test 10/10/24 14:29 10/10/24 12:09 Range/Units POC Glucose 238 H 321 H 70-106 mg/dl Current Medications Medications (Trade) Dose Ordered Sig/Layo Route Start Time Stop Time Status Last Admin Methylprednisolone Sodium Succinate (Solu Medrol) 125 mg ONCE ONCE IM 10/10/24 13:15 10/10/24 13:16 DC 10/10/24 15:05 [place] [address] Ph: [phone] DIAGNOSTIC IMAGING Diagnostic Imaging Report : [id number] Signed PATIENT: JERMAIN GARCIA ACCT: [id number] UNIT: [id number] : 1965 LOC: ER ROOM / BED: / AGE / SEX: 59 / F ADM STATUS: REG ER SERVICE 1203 ORDERING PHYSICIAN: MOLLY CELIS MD PROCEDURE(s): HWOCT - HEAD WITHOUT CONTRAST REASON: tia ORDER NUMBER(s): [id number], ACCESSION NUMBER(s): [id number] EXAM: CT HEAD WITHOUT CONTRAST HISTORY: tia COMPARISON: None TECHNIQUE: Noncontrast axial CT images of the head were performed. Sagittal and coronal reformatted images were obtained. This CT exam was performed using 1 or more of the following dose reduction techniques: Automated exposure control, adjustment of the mA and/or kv according to patient size, or the use of iterative reconstruction techniques. Radiation Dose: CTDI volume is 48.66 mGy. Dose-length product is 778.54 mGy*cm FINDINGS: No intracranial hemorrhage, midline shift, hydrocephalus, or evidence of acute large vessel infarct. There is left frontal extra-axial thick calcification (images 23-29, series 601; images 44-47, series 2) measuring 2 cm transverse x 2 cm AP. There is mild mucosal thickening of the ethmoid air cells. There are bilateral aiden bullosa. The bilateral mastoid air cells and middle ear spaces are clear. No cranial fracture or scalp edema. IMPRESSION: 1. Left frontal extra-axial calcification measures up to 2 cm transverse x 2 cm AP, possibly due to dural calcification or partially-calcified meningioma. Recommend follow-up pre and post IV contrast MRI of the brain on an outpatient basis for better characterization. 2. No other acute intracranial process is identified here. 3. Mild ethmoid sinus disease. ATED BY: CHANTELL VIVAR MD DICTATED DATE/TIME: 10/10/24 1301 SIGNED BY: CHANTELL VIVAR MD SIGNED DATE/TIME: 10/10/24 1301 CC: Patient alert. No sign of distress. Vitals stable. Answering questions. CT scan of the head does not show any acute process chronic. Recommended outpatient follow up. Was given prescription of prednisone. Explained to the patient. Nino will transfer to their facility [phone]. Time of 1ST Reevaluation: 12:35 Reevaluation 1ST: Unchanged Patient Education/Counseling: Diagnosis, Treatment Family Education/Counseling: No Family Present Departure 1 Departure Time of Disposition: 13:58 Impression: Primary Impression: Meningioma Additional Impression: Montiel's palsy Disposition: 02 SHORT TERM HOSPITAL Condition: Good e-Prescriptions Prednisone (Prednisone) 10 Mg Tab 10 MG PO DAILY for 10 Days, #10 MG Prov: MOLLY CELIS MD 10/10/24 Prednisone (Prednisone) 20 Mg Tab 20 MG PO BS for 10 Days, #10 MG Prov: MOLLY CELIS MD 10/10/24 Discharged With: Self Critical Care Note Critical Care Time?: Yes (90 min-critical care time only) Critical care comment: Monitor Stability Stability form required: No Heart Score Heart Score: Heart Score Response (Comments) Value History N/A 0 EKG N/A 0 Age N/A 0 Risk Factors N/A 0 Troponin N/A 0 Total 0 I personally scribed for MOLLY CELIS MD ([email or web address]) on 10/10/24 at 12:11. Electronically submitted by Tania Sinclair ([email or web address]). I personally scribed for MOLLY CELIS MD ([email or web address]) on 10/10/24 at 13:08. Electronically submitted by Tania Sinclair ([email or web address]). MOLLY CELIS MD Oct 10, 2024 12:11
--- NOTE | 2024-10-10 12:19 | ECG ---
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
--- NOTE | 2024-10-10 13:03 | DVH ---
EXAM: CT HEAD WITHOUT CONTRAST HISTORY: tia COMPARISON: None TECHNIQUE: Noncontrast axial CT images of the head were performed. Sagittal and coronal reformatted i mages were obtained. This CT exam was performed using 1 or more of the following dose reduction techn iques: Automated exposure control, adjustment of the mA and/or kv according to patient size, or the u se of iterative reconstruction techniques. Radiation Dose: CTDI volume is 48.66 mGy. Dose-length product is 778.54 mGy*cm FINDINGS: No intracranial hemorrhage, midline shift, hydrocephalus, or evidence of acute large vessel infarct. There is left frontal extra-axial thick calcification (images 23-29, series 601; images 44-47, series 2) measuring 2 cm transverse x 2 cm AP. There is mild mucosal thickening of the ethmoid air cells. There are bilateral aiden bullosa. The bilateral mastoid air cells and middle ear spaces are clear. No cranial fracture or scalp edema. IMPRESSION: 1. Left frontal extra-axial calcification measures up to 2 cm transverse x 2 cm AP, possibly due to d ural calcification or partially-calcified meningioma. Recommend follow-up pre and post IV contrast M RI of the brain on an outpatient basis for better characterization. 2. No other acute intracranial process is identified here. 3. Mild ethmoid sinus disease.
[2024-10-10] MEDS ORDERED: PRED20TA2 PO (13:59)
[2024-10-10] MEDS ORDERED: PRED10TA PO (13:59)
[2024-10-10] MEDS: methylPREDNISolone SOD SUCC 125 MG/2 ML VL IM ONE (15:05)
[2024-10-10 15:08] VITALS: PULSE 59; RESP 16; O2SAT 97
[2024-10-10 17:15] VITALS: BP 135/53; PULSE 67; RESP 16; TEMP 98.8; O2SAT 95
== END 2024-10-10 17:52 | disposition short-term general hospital (02) ==
LOC: ER 11:49
DX: D32.9 Benign neoplasm of meninges, unspecified (principal); G51.0 Bell's palsy; I10 Essential (primary) hypertension; E11.9 Type 2 diabetes mellitus without complications; J45.909 Unspecified asthma, uncomplicated
CPT/HCPCS: 70450; 82947; 93005; 96372; 99285; J2919; 82962